=== PATIENT | male | born 1935 | race Caucasian/White ===

== ENCOUNTER 2018-08-17 12:00 | Day surgery (SDC) | payer OTHER ==
[~2018-08-17 12:00] MED LIST: ACETAMINOPHEN 325 MG TAB PO; PHENYLEPHRINE HCL 10 % OPHTH. SOL 5ML OS; PROPARACAINE 0.5% OPHTH SOL 15ML OS
[2018-08-17] MEDS: PHENYLEPHRINE 2.5% OPHTH SOL 2ML OS (12:36)
[2018-08-17] MEDS: CYCLOPENTOLATE 2% OPHTH SOLN 2ML BTL OS (12:36)
[2018-08-17] MEDS: OFLOXACIN 0.3 % (OCUFLOX) OPTH SOL 5ML OS (12:37)
[2018-08-17] MEDS: TROPICAMIDE 1% OPHTH SOLN 2ML OS (12:37)
[2018-08-17] MEDS: LIDOCAINE 3.5 % 1ML OPHTH TOPICAL GEL OU (12:37)
[2018-08-17] MEDS ORDERED: MIDAZOLAM INJ 2 MG/2 ML VIAL (J2250) As Ordered (13:41)
[2018-08-17] MEDS ORDERED: fentaNYL 100 MCG/2 ML INJECTION (J3010) As Ordered (13:42)
[2018-08-17] MEDS: BALANCED SALT IRRIGATION SOLUTION 500ML BAG (FOR OR EYE MACHINE) As Ordered (14:08)
[2018-08-17] MEDS: CEFUROXIME 1MG/0.1ML INTRACAMERAL INJ As Ordered (14:08)
[2018-08-17] MEDS: LIDOCAINE 1% SDV 5 ML VIAL As Ordered (14:08)
[2018-08-17] MEDS: HEALON DUET (HEALON 10MG/ML 0.55ML & HEALON ENDOCOAT 30MG/ML 0.85ML) As Ordered (14:08)
[2018-08-17] MEDS: POVIDONE-IODINE 5% OPHTH PREP SOL 30ML As Ordered (14:08)
[2018-08-17] MEDS: ACETYLCHOLINE OPHTH SOLN 1% 2ML (MIOCHOL-E) As Ordered (14:12)
[2018-08-17] MEDS: KETOROLAC 0.5% OPHTH SOLN OS (14:30)
[2018-08-17] MEDS ORDERED: TRIMETHOBENZAMIDE 300 MG CAP PO (14:30)
[2018-08-17] MEDS: AcetaZOLAMIDE 500 MG ER CAP PO (14:37)
== END 2018-08-17 14:40 | disposition home or self-care (01) ==
LOC: M SDC 12:00
DX: H25.12 Age-related nuclear cataract, left eye (principal); H52.202 Unspecified astigmatism, left eye; I10 Essential (primary) hypertension; E78.5 Hyperlipidemia, unspecified; Z79.82 Long term (current) use of aspirin; Z79.899 Other long term (current) drug therapy
CPT/HCPCS: 66984

== ENCOUNTER 2018-08-24 08:57 | Day surgery (SDC) | payer OTHER ==
[~2018-08-24 08:57] MED LIST changes: +BSS with VANC/TOB/EPI for EYE CASES IR; +PHENYLEPHRINE HCL 10 % OPHTH. SOL 5ML OD; -PHENYLEPHRINE HCL 10 % OPHTH. SOL 5ML OS; +PROPARACAINE 0.5% OPHTH SOL 15ML OD; -PROPARACAINE 0.5% OPHTH SOL 15ML OS
[2018-08-24] MEDS: OFLOXACIN 0.3 % (OCUFLOX) OPTH SOL 5ML OD (09:51)
[2018-08-24] MEDS: LIDOCAINE 3.5 % 1ML OPHTH TOPICAL GEL OU (09:51)
[2018-08-24] MEDS: PHENYLEPHRINE 2.5% OPHTH SOL 2ML OD (09:51)
[2018-08-24] MEDS: TROPICAMIDE 1% OPHTH SOLN 2ML OD (09:51)
[2018-08-24] MEDS: CYCLOPENTOLATE 2% OPHTH SOLN 2ML BTL OD (09:52)
[2018-08-24] MEDS ORDERED: fentaNYL 100 MCG/2 ML INJECTION (J3010) As Ordered (09:54)
[2018-08-24] MEDS ORDERED: MIDAZOLAM INJ 2 MG/2 ML VIAL (J2250) As Ordered (09:54)
[2018-08-24] MEDS: POVIDONE-IODINE 5% OPHTH PREP SOL 30ML As Ordered (11:28)
[2018-08-24] MEDS: BALANCED SALT IRRIGATION SOLUTION 500ML BAG (FOR OR EYE MACHINE) As Ordered (11:29)
[2018-08-24] MEDS: HEALON DUET (HEALON 10MG/ML 0.55ML & HEALON ENDOCOAT 30MG/ML 0.85ML) As Ordered (11:29)
[2018-08-24] MEDS: LIDOCAINE 1% SDV 5 ML VIAL As Ordered (11:30)
[2018-08-24] MEDS: CEFUROXIME 1MG/0.1ML INTRACAMERAL INJ As Ordered (11:30)
[2018-08-24] MEDS ORDERED: AcetaZOLAMIDE 500 MG ER CAP As Ordered (12:10)
[2018-08-24] MEDS ORDERED: KETOROLAC 0.5% OPHTH SOLN OD (12:15)
[2018-08-24] MEDS ORDERED: TRIMETHOBENZAMIDE 300 MG CAP PO (12:15)
[2018-08-24] MEDS: AcetaZOLAMIDE 500 MG ER CAP PO (12:19)
== END 2018-08-24 12:20 | disposition home or self-care (01) ==
LOC: M SDC 08:57
DX: H25.11 Age-related nuclear cataract, right eye (principal); I10 Essential (primary) hypertension; E78.00 Pure hypercholesterolemia, unspecified; M10.9 Gout, unspecified; K57.32 Diverticulitis of large intestine without perforation or abscess without bleeding; F32.9 Major depressive disorder, single episode, unspecified; M16.11 Unilateral primary osteoarthritis, right hip; M54.9 Dorsalgia, unspecified; R06.83 Snoring; Z79.899 Other long term (current) drug therapy; Z79.82 Long term (current) use of aspirin; Z96.641 Presence of right artificial hip joint
CPT/HCPCS: 66984

== ENCOUNTER → 2019-03-30 | Outpatient (REF) | payer MEDICARE ==
[~2019-03-30] MED LIST changes: -ACETAMINOPHEN 325 MG TAB PO; +ALEVE PO; +ALLO10TA PO; +AMLO10TA5 PO; +ASPI81TA26 PO; +ASPI81TA83 OR; +ATOR40TA75 PO; -BSS with VANC/TOB/EPI for EYE CASES IR; +COUM1TAB18 OR; +DIOV160T5 OR; +METO-743 OR; +METO1TAB33 PO; +PERC5TAB8 OR; -PHENYLEPHRINE HCL 10 % OPHTH. SOL 5ML OD; +PRAVASTATIN PO; -PROPARACAINE 0.5% OPHTH SOL 15ML OD; +SERT-138 PO; +SERT100T OR; +TYLENOL PO; +VITA50005 PO; +VITAMIN D50000 UNT OR
== END ==
LOC: M LAB REF 15:55
PROVIDERS: ATTEND Surgery
DX: C44.320 Squamous cell carcinoma of skin of unspecified parts of face (principal)

== ENCOUNTER 2020-10-09 10:37 | Emergency (ER) | payer MEDICARE ==
[~2020-10-09] VITALS: Ht 167.6 cm; Wt 72.7 kg
[~2020-10-09 10:37] MED LIST changes: -AMLO10TA5 PO; +AMLO1TAB25 PO
[2020-10-09] MEDS ORDERED: NS 1,000 ML IV SCH ×2 (10:47→14:49)
[2020-10-09 11:47] LABS: BASO % 0.4 % (0.0-1.0); HEMATOCRIT 41.6 % (42.0-52.0); HEMOGLOBIN 13.7 g/dl (13.5-17.5); LYMPH # 0.5 10^3/uL (1.5-5.0); LYMPH % 10.8 % (24.0-44.0); MEAN CORPUSCULAR HEMOGLOBIN 31.6 pg (27.0-33.0); MEAN CORPUSCULAR HGB CONC 32.9 g/dl (32.0-36.5); MEAN CORPUSCULAR VOLUME 95.9 fl (80.0-96.0); MONO # 0.5 10^3/uL (0.0-0.8); MONO % 10.8 % (0.0-5.0); NEUTROPHILS # 3.5 10^3/uL (1.5-8.5); NEUTROPHILS % 77.8 % (36.0-66.0); PLATELET COUNT, AUTOMATED 106 10^3/uL (150-450); RED BLOOD COUNT 4.34 10^6/uL (4.30-6.10); WHITE BLOOD COUNT 4.6 10^3/uL (4.0-10.0)
[2020-10-09 11:56] LABS: INR 0.86; PROTHROMBIN TIME 11.9 SECONDS (12.5-14.3)
[2020-10-09 12:15] LABS: ALBUMIN 3.5 GM/DL (3.2-5.2); ALT/SGPT 31 U/L (12-78); BILIRUBIN,DIRECT 0.2 MG/DL (0.0-0.2); BILIRUBIN,TOTAL 0.7 MG/DL (0.2-1.0); BLOOD UREA NITROGEN 25 MG/DL (7-18); CALCIUM LEVEL 8.7 MG/DL (8.8-10.2); CARBON DIOXIDE LEVEL 27 MEQ/L (21-32); CHLORIDE LEVEL 105 MEQ/L (98-107); CK-MB VALUE MASS 1.8 NG/ML (<3.6); CPK CREATINE PHOSPHOKINASE 103 U/L (39-308); CREATININE FOR GFR 1.76 MG/DL (0.70-1.30); GLOMERULAR FILTRATION RATE 39.3 (>35); GLUCOSE, FASTING 165 MG/DL (70-100); LIPASE 364 U/L (73-393); MB/CK RELATIVE INDEX 1.75 (< OR =4); POTASSIUM SERUM 4.5 MEQ/L (3.5-5.1); SODIUM LEVEL 137 MEQ/L (136-145); TOTAL PROTEIN 6.8 GM/DL (6.4-8.2); TROPONIN I < 0.02 NG/ML (< 0.10)
[2020-10-09 12:20] LABS: RSV AMPLIFICATION NEGATIVE (NEGATIVE)
[2020-10-09 12:38] VITALS: O2SAT 95
[2020-10-09] MEDS ORDERED: NS 500 ML IV ONE (12:45)
--- NOTE | 2020-10-09 12:54 | REP ---
INDICATION: cough. COMPARISON: PA and lateral chest dated 11/07/2010. TECHNIQUE: Upright PA and lateral chest. FINDINGS: The lung becerril are clear. Cardiac size is normal. The liana, mediastinum and skeletal structures are unremarkable. IMPRESSION: Essentially negative PA portable chest <Electronically signed by Darnell Tuttle > 10/09/20 [id number]
[2020-10-09] MEDS ORDERED: METOPROLOL SUCC (TopROL XL) 100MG *XL* TAB PO ONE (14:00)
[2020-10-09] MEDS ORDERED: amLODIPine 10 MG TAB PO ONE (14:00)
[2020-10-09 14:30] VITALS: BP 145/67
[2020-10-09] MEDS ORDERED: methylPREDNISolone 125MG 2ML VIAL IV PRN (15:00)
[2020-10-09] MEDS ORDERED: CASIRIVIMAB (REGN10933) 1,200 MG, IMDEVIMAB (REGN10987) 1,200 MG in NS 230 ML IV ONE (15:00)
[2020-10-09] MEDS ORDERED: diphenhydrAMINE 50MG/ML VIAL (J1200) IV PRN (15:00)
[2020-10-09] MEDS ORDERED: EPINEPHrine INJ 1 MG/ML 1ML AMP IM PRN (15:00)
[2020-10-09] MEDS ORDERED: BAMLANIVIMAB 700 MG in NS 180 ML IV ONE (15:00)
--- NOTE | 2020-10-10 13:17 | ECGEPIP ---
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
== END 2020-10-09 14:51 | disposition home or self-care (01) ==
LOC: M ED 10:37
DX: U07.1 COVID-19 (principal); N17.9 Acute kidney failure, unspecified; R94.31 Abnormal electrocardiogram [ECG] [EKG]; I10 Essential (primary) hypertension; E78.5 Hyperlipidemia, unspecified; M10.9 Gout, unspecified; Z79.82 Long term (current) use of aspirin; Z79.899 Other long term (current) drug therapy

== ENCOUNTER 2020-10-09 14:30 | Outpatient (CLI) | payer MEDICARE ==
[~2020-10-09] VITALS: Ht 167.6 cm; Wt 72.2 kg
[2020-10-09] VITALS (8 sets, daily range): BP systolic 133–173; BP diastolic 63–74
[2020-10-09] MEDS ORDERED: NS 1,000 ML IV SCH (14:54)
[2020-10-09] MEDS ORDERED: diphenhydrAMINE 25MG CAP PO ONE (15:00)
[2020-10-09] MEDS ORDERED: diphenhydrAMINE 50MG/ML VIAL (J1200) IV PRN (15:00)
[2020-10-09] MEDS ORDERED: EPINEPHrine INJ 1 MG/ML 1ML AMP IM PRN (15:00)
[2020-10-09] MEDS ORDERED: methylPREDNISolone 125MG 2ML VIAL IV PRN (15:00)
[2020-10-09] MEDS ORDERED: CASIRIVIMAB (REGN10933) 1,200 MG, IMDEVIMAB (REGN10987) 1,200 MG in NS 230 ML IV ONE (15:00)
[2020-10-09] MEDS ORDERED: ACETAMINOPHEN TAB 650MG DOSE (2X325MG) PO ONE (15:00)
--- NOTE | 2020-10-09 15:28 | IPNPDOC ---
Text Note Date of Service The patient was seen on 10/09/20. NOTE Outpatient trasnfusion 85M HTN, HLD, gout will be receiving Bamlanivimab, casirvimab and Imdevimab infusion therapy per hospital infusion policy. Patient has been feeling tired at home with a headache some diarrhea cough and muscle aches for the past 4 days which prompted him to come to the ER for visit. Patient does not meet criteria to be admitted to the hospital. Patient is breathing at 98% on room air. He saturates well on exertion as well. Patient will receive the infusion and then be discharged to home. I encouraged the patient to drink lots of oral intake to help with his mild WINTER. On exam patient was resting comfortably lungs were clear to auscultation bilaterally with no crackles or wheezing. Heart was regularly irregular. Patient was calm awake and answering all questions appropriately. His abdomen was soft and nontender with positive bowel sounds. Consent was obtained with patient and signed in the chart. NITA SENIOR MD Oct 09, 2020 15:28
[2020-10-09] MEDS ORDERED: BAMLANIVIMAB 700 MG in NS 180 ML IV ONE (16:00)
== END 2020-10-09 19:00 | disposition home or self-care (01) ==
LOC: M 4MAIN 14:30 → M OPCLI4 14:30
PROVIDERS: ATTEND Family Medicine
DX: U07.1 COVID-19 (principal)

== ENCOUNTER 2022-01-15 19:48 | Emergency (ER) | payer MEDICARE ==
[~2022-01-15] VITALS: Ht 167.6 cm; Wt 72.7 kg
[2022-01-15 21:22] LABS: BASO # 0.1 10^3/uL (0.0-0.2); BASO % 0.3 % (0.0-1.0); EOS % 0.1 % (0.0-3.0); HEMATOCRIT 41.3 % (42.0-52.0); HEMOGLOBIN 14.8 g/dl (13.5-17.5); LYMPH # 1.1 10^3/uL (1.5-5.0); LYMPH % 6.8 % (24.0-44.0); MEAN CORPUSCULAR HGB CONC 35.8 g/dl (32.0-36.5); MONO # 1.1 10^3/uL (0.0-0.8); MONO % 6.7 % (2.0-8.0); NEUTROPHILS # 13.5 10^3/uL (1.5-8.5); NEUTROPHILS % 85.7 % (36.0-66.0); PLATELET COUNT, AUTOMATED 219 10^3/uL (150-450); RED BLOOD COUNT 4.49 10^6/uL (4.30-6.10); WHITE BLOOD COUNT 15.8 10^3/uL (4.0-10.0)
[2022-01-15] MEDS ORDERED: ISOVUE-370 76% 100ML VIAL As Ordered ONE (21:23)
[2022-01-15] MEDS ORDERED: MORPHINE 2 MG/ML 1ML VIAL (J2270) IV ONE (21:25)
[2022-01-15 21:52] LABS: ALBUMIN 4.2 GM/DL (3.2-5.2); BILIRUBIN,DIRECT 0.2 MG/DL (0.0-0.2); BILIRUBIN,TOTAL 0.7 MG/DL (0.2-1.0); TOTAL PROTEIN 7.7 GM/DL (6.4-8.2)
[2022-01-15 22:06] LABS: CK-MB VALUE MASS 2.7 NG/ML (<3.6); MB/CK RELATIVE INDEX 3.14 (< OR =4)
[2022-01-15] MEDS ORDERED: NS 1,000 ML IV ONE ×2 (22:25)
[2022-01-15 22:44] LABS: CK-MB VALUE MASS 2.6 NG/ML (<3.6); MB/CK RELATIVE INDEX 1.35 (< OR =4)
[2022-01-16] MEDS ORDERED: NS 500 ML IV ONE (00:30)
[2022-01-16] MEDS ORDERED: PERCOCET 5MG/325MG TAB PO ONE ×2 (01:35→02:15)
[2022-01-16 01:36] VITALS: BP 165/72
[2022-01-16] MEDS ORDERED: AUGMENTIN 875 MG TAB PO ONE (01:45)
[2022-01-16] MEDS ORDERED: PERC5TAB12 PO (01:45)
[2022-01-16] MEDS ORDERED: ONDANSETRON 4MG/2ML VIAL IV ONE (01:45)
[2022-01-16] MEDS ORDERED: AMOX875T PO (01:48)
== END 2022-01-16 02:32 | disposition home or self-care (01) ==
LOC: M ED 19:48
DX: K51.90 Ulcerative colitis, unspecified, without complications (principal); I10 Essential (primary) hypertension; E78.5 Hyperlipidemia, unspecified; M10.9 Gout, unspecified; Z79.899 Other long term (current) drug therapy
CPT/HCPCS: 74177; 80047; 80076; 81001; 82550; 82553; 83605; 83690; 84484; 85025; 87040; 87798; 93005; 93041; 94760; 96361; 96374; 96375; 99285; J2270; J2405; Q9967

== ENCOUNTER 2022-01-20 11:18 | Emergency (ER) | payer MEDICARE ==
[~2022-01-20] VITALS: Ht 167.6 cm; Wt 75.0 kg
[~2022-01-20 11:18] MED LIST changes: +AMOX875T PO; +PERC5TAB12 PO
[2022-01-20] MEDS ORDERED: DICY10CA13 (11:29)
[2022-01-20] MEDS ORDERED: BENEPOW18 PO (11:29)
[2022-01-20] MEDS ORDERED: NS 1,000 ML IV ONE (12:20)
[2022-01-20 12:44] LABS: BASO % 0.2 % (0.0-1.0); HEMOGLOBIN 13.7 g/dl (13.5-17.5); LYMPH # 0.6 10^3/uL (1.5-5.0); LYMPH % 3.2 % (24.0-44.0); MEAN CORPUSCULAR HEMOGLOBIN 31.8 pg (27.0-33.0); MEAN CORPUSCULAR HGB CONC 34.3 g/dl (32.0-36.5); MEAN CORPUSCULAR VOLUME 92.8 fl (80.0-96.0); MONO # 1.5 10^3/uL (0.0-0.8); MONO % 8.6 % (2.0-8.0); NEUTROPHILS # 15.3 10^3/uL (1.5-8.5); NEUTROPHILS % 87.3 % (36.0-66.0); PLATELET COUNT, AUTOMATED 228 10^3/uL (150-450); RED BLOOD COUNT 4.31 10^6/uL (4.30-6.10); WHITE BLOOD COUNT 17.5 10^3/uL (4.0-10.0)
[2022-01-20 13:14] LABS: ALBUMIN 2.6 GM/DL (3.2-5.2); BILIRUBIN,DIRECT 2.4 MG/DL (0.0-0.2); BILIRUBIN,TOTAL 3.6 MG/DL (0.2-1.0); CALCIUM LEVEL 8.9 MG/DL (8.8-10.2); CREATININE FOR GFR 1.73 MG/DL (0.70-1.30); POTASSIUM SERUM 3.5 MEQ/L (3.5-5.1); TOTAL PROTEIN 6.2 GM/DL (6.4-8.2)
[2022-01-20] MEDS ORDERED: ISOVUE-370 76% 100ML VIAL As Ordered ONE (13:27)
[2022-01-20] MEDS ORDERED: METOPROLOL 5 MG/5 ML VIAL IV SCH (14:45)
[2022-01-20] MEDS ORDERED: LevoFLOXacin IV 750 MG in IV 1 EA IV ONE (15:00)
[2022-01-20] MEDS ORDERED: cefTRIAXone SOD 2 GM in D5W MINI-BAG PLUS 50 ML IV ONE (15:00)
[2022-01-20] MEDS ORDERED: HEPARIN SOD (PORCINE) 5000UNITS/ML 1ML VIAL/SYRINGE IV PRN (15:45)
[2022-01-20] MEDS ORDERED: HEPARIN DRIP 25,000 UNITS in IV 1 EA IV SCH (15:45)
[2022-01-20 16:42] LABS: INR 1.28; PROTHROMBIN TIME 16.4 SECONDS (12.7-14.5)
[2022-01-20 16:43] LABS: PARTIAL THROMBOPLASTIN TIME 31.4 SECONDS (25.9-37.0)
[2022-01-20 16:45] VITALS: BP 172/83
[2022-01-20] MEDS ORDERED: ONDANSETRON 4MG/2ML VIAL IV ONE (16:55)
== END 2022-01-20 17:05 | disposition short-term general hospital (02) ==
LOC: M ED 11:18
DX: J18.9 Pneumonia, unspecified organism (principal); I48.92 Unspecified atrial flutter; I77.4 Celiac artery compression syndrome; R94.31 Abnormal electrocardiogram [ECG] [EKG]; I10 Essential (primary) hypertension; E78.5 Hyperlipidemia, unspecified; Z79.899 Other long term (current) drug therapy
CPT/HCPCS: 71260; 74021; 74177; 80048; 80076; 81001; 83605; 83690; 85025; 85610; 85730; 87040; 87798; 93005; 93041; 96365; 96375; 96376; 99285; J0696; J1644; J1956; J2405; Q9967

== ENCOUNTER → 2023-02-09 | Outpatient (CLI) | payer MEDICARE ==
[~2023-02-09] MED LIST changes: +BENEPOW18 PO; +DICY10CA13
== END ==
LOC: M RAD 14:03
PROVIDERS: ATTEND Nurse Practitioner Family
DX: R22.1 Localized swelling, mass and lump, neck (principal)

== ENCOUNTER → 2023-03-04 | Outpatient (CLI) | payer MEDICARE ==
[~2023-03-04] MED LIST changes: +ISOVUE-370 76% 100ML VIAL As Ordered ONE
== END ==
LOC: M RAD 09:50
PROVIDERS: ATTEND Otolaryngology
DX: K11.8 Other diseases of salivary glands (principal)
CPT/HCPCS: 70491; Q9967

== ENCOUNTER → 2023-04-05 | Outpatient (CLI) | payer MEDICARE ==
[~2023-04-05] MED LIST changes: -ISOVUE-370 76% 100ML VIAL As Ordered ONE; +LIDOCAINE 1% MDV 20ML VIAL As Ordered ONE
[2023-04-05 12:52] VITALS: BP 200/70; TEMP 98.7
[2023-04-05 12:55] VITALS: O2SAT 98
== END ==
LOC: M IRPRO 12:34
PROVIDERS: ATTEND Otolaryngology
DX: D37.030 Neoplasm of uncertain behavior of the parotid salivary glands (principal)

== ENCOUNTER → 2023-05-06 | Outpatient (CLI) | payer MEDICARE ==
[~2023-05-06] MED LIST changes: +DICY-61; -DICY10CA13
[2023-05-06 12:45] VITALS: TEMP 98.4
[2023-05-06 14:01] VITALS: BP 175/74; O2SAT 98
== END ==
LOC: M IRPRO 12:11
PROVIDERS: ATTEND Otolaryngology
DX: C07 Malignant neoplasm of parotid gland (principal)

== ENCOUNTER → 2023-05-07 | Outpatient (CLI) | payer MEDICARE ==
[~2023-05-07] MED LIST changes: -LIDOCAINE 1% MDV 20ML VIAL As Ordered ONE
== END ==
LOC: M ONCR 08:51
PROVIDERS: ATTEND General Practice
DX: D37.030 Neoplasm of uncertain behavior of the parotid salivary glands (principal); D48.5 Neoplasm of uncertain behavior of skin; E78.5 Hyperlipidemia, unspecified; I12.9 Hypertensive chronic kidney disease with stage 1 through stage 4 chronic kidney disease, or unspecified chronic kidney disease; M10.9 Gout, unspecified; N18.9 Chronic kidney disease, unspecified; Z71.2 Person consulting for explanation of examination or test findings; Z79.82 Long term (current) use of aspirin; Z79.899 Other long term (current) drug therapy

== ENCOUNTER → 2023-06-24 | Outpatient (RCR) | payer MEDICARE ==
[~2023-06-24] MED LIST changes: +BACTDSTA PO
== END ==
LOC: M ONCR 05-25 09:41
PROVIDERS: ATTEND General Practice
DX: Z51.0 Encounter for antineoplastic radiation therapy (principal); C44.320 Squamous cell carcinoma of skin of unspecified parts of face

== ENCOUNTER 2023-07-26 09:11 | Outpatient (RCR) | payer MEDICARE ==
[~2023-07-26 09:11] MED LIST changes: +MAGICMW SSP
== END 2023-08-24 ==
LOC: M ONCR 09:11
PROVIDERS: ATTEND General Practice
DX: Z51.0 Encounter for antineoplastic radiation therapy (principal); C44.320 Squamous cell carcinoma of skin of unspecified parts of face

== ENCOUNTER → 2023-08-24 | Outpatient (CLI) | payer MEDICARE | LOC: M ONCR 09:05 | PROVIDERS: ATTEND General Practice | DX: L59.8 Other specified disorders of the skin and subcutaneous tissue related to radiation (principal); D49.0 Neoplasm of unspecified behavior of digestive system; R68.2 Dry mouth, unspecified; R43.8 Other disturbances of smell and taste ==

== ENCOUNTER → 2023-10-13 | Outpatient (CLI) | payer MEDICARE, MEDICAID ==
[2023-10-13 16:13] LABS: ALBUMIN 3.9 G/DL (3.2-5.2); BILIRUBIN,TOTAL 0.6 MG/DL (0.3-1.2); CALCIUM LEVEL 9.5 MG/DL (8.3-10.6); CREATININE FOR GFR 1.48 MG/DL (0.70-1.30); GLOMERULAR FILTRATION RATE 47.6 (>35); POTASSIUM SERUM 4.4 MMOL/L (3.5-5.1); TOTAL PROTEIN 6.8 G/DL (5.7-8.2)
== END ==
LOC: M ONCR 08-10 09:06
PROVIDERS: ATTEND Radiology Radiation Oncology
DX: C44.320 Squamous cell carcinoma of skin of unspecified parts of face (principal); Z71.2 Person consulting for explanation of examination or test findings; Z79.82 Long term (current) use of aspirin; Z79.899 Other long term (current) drug therapy; Z92.3 Personal history of irradiation
CPT/HCPCS: 36415; 80053; G0463

== ENCOUNTER → 2023-10-15 | Outpatient (CLI) | payer MEDICARE ==
[~2023-10-15] MED LIST changes: +ISOVUE-370 76% 100ML VIAL As Ordered ONE
== END ==
LOC: M RAD 11:03
PROVIDERS: ATTEND General Practice
DX: C44.320 Squamous cell carcinoma of skin of unspecified parts of face (principal)
CPT/HCPCS: 70491; Q9967

== ENCOUNTER → 2023-10-26 | Outpatient (CLI) | payer OTHER, MEDICAID ==
[~2023-10-26] MED LIST changes: -ISOVUE-370 76% 100ML VIAL As Ordered ONE
== END ==
LOC: M ONCR 09:11
PROVIDERS: ATTEND General Practice
DX: C44.320 Squamous cell carcinoma of skin of unspecified parts of face (principal); L98.9 Disorder of the skin and subcutaneous tissue, unspecified; Z79.82 Long term (current) use of aspirin; Z79.899 Other long term (current) drug therapy; Z71.2 Person consulting for explanation of examination or test findings; Z92.3 Personal history of irradiation

== ENCOUNTER → 2023-11-30 | Outpatient (CLI) | payer OTHER, MEDICAID, MEDICARE ==
[~2023-11-30] MED LIST changes: +DILT12SRCA PO; +ERGO500029 PO; +ZOLO100T PO
== END ==
LOC: M ONCR 09:09
PROVIDERS: ATTEND General Practice
DX: C07 Malignant neoplasm of parotid gland (principal); C44.42 Squamous cell carcinoma of skin of scalp and neck; Z71.2 Person consulting for explanation of examination or test findings; Z79.82 Long term (current) use of aspirin; Z79.899 Other long term (current) drug therapy; Z92.3 Personal history of irradiation

== ENCOUNTER → 2023-12-06 | Outpatient (CLI) | payer OTHER, MEDICAID | LOC: M PLARAD 09:47 | PROVIDERS: ATTEND Specialist | DX: C07 Malignant neoplasm of parotid gland (principal) | CPT/HCPCS: 78815; A9552 ==

== ENCOUNTER → 2023-12-08 | Outpatient (CLI) | payer OTHER, MEDICAID ==
[~2023-12-08] VITALS: Ht 165.1 cm; Wt 69.9 kg
[~2023-12-08] MED LIST changes: +LIDOCAINE 1% MDV 20ML VIAL As Ordered ONE; +LIDOCAINE W/EPINEPHRINE 1% 20ML VIAL As Ordered ONE; +MIDAZOLAM INJ 2MG/2ML VIAL As Ordered ONE; +NS 1,000 ML IV SCH; +ceFAZolin 2 GM/D5W 50 ML IV BAG As Ordered ONE; +ceFAZolin SOD 2 GM in IV 1 EA IV ONE; +fentaNYL 100 MCG/2 ML INJECTION As Ordered ONE
[2023-12-08 11:57] VITALS: TEMP 96.9
[2023-12-08 12:33] LABS: INR 1.06; PROTHROMBIN TIME 13.5 SECONDS (12.5-14.5)
[2023-12-08 15:17] VITALS: BP 167/73; O2SAT 100
== END ==
LOC: M IRPRO 11:35
PROVIDERS: ATTEND Specialist
DX: C44.42 Squamous cell carcinoma of skin of scalp and neck (principal)
CPT/HCPCS: 36561; 85610; 99152; 99153; C1769; J0690; J2250; J3010

== ENCOUNTER → 2024-01-04 | Outpatient (REF) | payer OTHER, MEDICAID ==
[~2024-01-04] MED LIST changes: +CIPR250T3 PO; -LIDOCAINE 1% MDV 20ML VIAL As Ordered ONE; -LIDOCAINE W/EPINEPHRINE 1% 20ML VIAL As Ordered ONE; -MIDAZOLAM INJ 2MG/2ML VIAL As Ordered ONE; -NS 1,000 ML IV SCH; -ceFAZolin 2 GM/D5W 50 ML IV BAG As Ordered ONE; -ceFAZolin SOD 2 GM in IV 1 EA IV ONE; -fentaNYL 100 MCG/2 ML INJECTION As Ordered ONE
== END ==
LOC: M LAB REF 10:13
PROVIDERS: ATTEND Nurse Practitioner Family
DX: R30.0 Dysuria (principal); R31.9 Hematuria, unspecified

== ENCOUNTER → 2024-01-17 | Outpatient (REF) | payer OTHER, MEDICAID ==
[2024-01-17 14:01] LABS: APPEARANCE, URINE CLEAR (CLEAR); BACTERIA, URINE AUTO NEGATIVE (NEGATIVE); BILIRUBIN, URINE AUTO NEGATIVE (NEGATIVE); BLOOD, URINE BLOOD NEGATIVE (NEGATIVE); COLOR, URINE YELLOW (YELLOW); GLUCOSE, URINE (UA) AUTO NEGATIVE (NEGATIVE); KETONE, URINE AUTO NEGATIVE (NEGATIVE); LEUKOCYTE ESTERASE, URINE AUTO NEGATIVE (NEGATIVE); MUCUS, URINE SMALL (NEGATIVE); NITRITE, URINE AUTO NEGATIVE (NEGATIVE); PROTEIN, URINE AUTO 1+ mg/dL (NEGATIVE); RBC, URINE AUTO 1 /HPF (0-3); SPECIFIC GRAVITY URINE AUTO 1.014 (1.002-1.035); SQUAMOUS EPITHELIAL CELL UR AU 0 /HPF (0-6); UROBILINOGEN, URINE AUTO 0.2 mg/dL (0.0-2.0); WBC, URINE AUTO 1 /HPF (0-3)
== END ==
LOC: M SMT 12:57
PROVIDERS: ATTEND Urology
DX: Z87.440 Personal history of urinary (tract) infections (principal); Z79.899 Other long term (current) drug therapy